=== PATIENT | female | born 1960 | race African-American/Black ===

== ENCOUNTER 2022-07-27 20:25 | Outpatient (CLI) | payer MEDICAID ==
--- NOTE | 2022-07-28 12:27 | Ultrasound Report ---
PROCEDURE: renal ultrasound INDICATIONS: KIDNEY DISEASE TECHNIQUE: Real-time scanning was performed of the kidneys and bladder, with image documentation. COMPARISON: None. FINDINGS: Kidneys: Kidneys are normal in size. Right kidney measures 9.8 cm long; left kidney measures 10.7 c m long. Right renal cortical thickness is 2.7 cm; left renal cortical thickness is 1.7 cm. No hydron ephrosis or definite evidence of nephrolithiasis. Small cluster of renal sinus cysts at the right kid steve. Possible increase in cortical echogenicity. Bladder: Pre-void bladder volume is 234 mL. Post-void residual is 4 mL. Pre-void images demonstrat e no intraluminal masses or stones. On pre-void images, both ureteral jets are noted with color Dopp ler interrogation. (Of note, ureteral jets may not be detectable in up to 25% of cases due to insuff icient differences in specific gravity between ureteral and bladder urine). Miscellaneous: No free abdominal fluid. Approximate prostate gland dimensions of 5.3 x 4.5 x 6.7 cm , volume 82 cc. IMPRESSION: 1. No hydronephrosis. 2. Possible increase in renal cortical echogenicity, a finding that can be seen in the setting of med ical renal disease. Reviewed by: Demetrius Welch MD on 07/28/2022 12:26 PM PST Approved by: Demetrius Welch MD on 07/28/2022 12:26 PM PST Station ID: [id number]
== END 2022-07-27 20:26 | disposition home or self-care (01) ==
LOC: DI 20:25
PROVIDERS: ATTEND Internal Medicine Nephrology
DX: N18.31 Chronic kidney disease, stage 3a (principal)

== ENCOUNTER 2023-08-26 11:42 | Outpatient (CLI) | payer BC ==
[2023-08-26 12:31] LABS: CREATININE 1.8 mg/dL (0.6-1.3)
[2023-08-26] MEDS ORDERED: GADOTERATE MEGLUMINE 10 MMOL/20 ML VIAL ONE (12:32)
[2023-08-26] MEDS: GADOTERATE MEGLUMINE 10 MMOL/20 ML VIAL IVP ONE (13:29)
--- NOTE | 2023-08-30 15:08 | MRI Report ---
PROCEDURE: Pelvis W/WO INDICATIONS: ELEVATED PSA CONTRAST: CLARISCAN 17.2 ML TECHNIQUE: Coronal ultra fast SE, axial T1 FSE with fat saturation, 3-plane nonbreath-hold T2 FSE. After the ad ministration of contrast, dynamic axial, delayed axial and coronal ultra fast GE or 2-D spoiled GE wi th fat saturation through the pelvis. Optional diffusion weighted imaging and ADC may be performed. COMPARISON: None. FINDINGS: Image quality: Diffusion weighted and dynamic contrast enhanced images are diagnostic. Prostate: Gland size is 5.8 x 5.5 x 5.3 cm; ellipsoid gland volume is 88 mL. No PI-RADS 3-5 lesions. Genitourinary system: Bladder wall thickness is normal. Distal ureters are non distended. Bowel and peritoneum: No pathologic free pelvic fluid. Inferior colon and small bowel loops are nor mal in caliber. Colonic diverticulosis without evidence of diverticulitis. Nodes and vessels: No pelvic or inguinal adenopathy by size criteria. Iliac vessels are normal in c aliber. Soft tissues: No inguinal hernias. Bones: Bone marrow demonstrates normal overall signal. No suspicious bony lesions. IMPRESSION: Prostatomegaly. No PI-RADS 3-5 lesions. Reviewed by: Tristan Caldwell MD on 08/30/2023 3:07 PM PDT Approved by: Tristan Caldwell MD on 08/30/2023 3:07 PM PDT Station ID: [id number]
== END 2023-08-26 11:43 | disposition home or self-care (01) ==
LOC: LAB 11:42 → EDSEX 12:00
PROVIDERS: ATTEND Urology
DX: N40.0 Benign prostatic hyperplasia without lower urinary tract symptoms (principal)
CPT/HCPCS: 36415; 72197; 82565; A9575